=== PATIENT | male | born 1990 | race African-American/Black ===

== ENCOUNTER 2019-03-16 09:37 | Emergency (ER) | payer OTHER ==
[~2019-03-16] VITALS: Ht 172.7 cm; Wt 86.3 kg
[2019-03-16 10:45] VITALS: BP 132/70
[2019-03-16] MEDS ORDERED: IBUPROFEN 400MG TABLET PO ONE (10:45)
== END 2019-03-16 12:15 | disposition home or self-care (01) ==
LOC: ER 09:45
DX: M25.512 Pain in left shoulder (principal); M79.18 Myalgia, other site; F12.10 Cannabis abuse, uncomplicated
CPT/HCPCS: 73010; 73030; 99283